=== PATIENT | female | born 1960 | race Caucasian/White ===

== ENCOUNTER → 2018-09-03 16:09 | Outpatient (CLI) | payer BC, SELFPAY ==
--- NOTE | 2018-09-03 16:14 | BI_ITS ---
MAMMOGRAPHY - BILATERAL SCREENING REASON FOR EXAM: Female, 58 years old. Routine annual screening examination. PERTINENT HISTORY: Non-contributory. Right breast larger than left breast. TECHNIQUE: Digital bilateral breast rosana (3D mammographic acquisition) in the CC and MLO projections. 2-D mediolateral oblique (MLO) and craniocaudad (CC) views of both breasts were obtained. CAD: Full Field Digital Mammography with Computer Added Detection was performed. COMPARISON: Comparison is made with prior study dated September 25, 2016 and April 12, 2015. FINDINGS: Breast Composition: There are scattered areas of fibroglandular density. There are no dominant masses or suspicious calcifications. No other significant abnormalities are identified. There has been no significant change since the prior study. BI/SCREENING MAMM (CAD), BILAT IMPRESSION: Stable bilateral screening mammogram. Yearly follow-up mammogram recommended. (A) ASSESSMENT CATEGORY: BIRADS Category 1: Negative. A letter regarding these results will be sent to the patient by the facility within 30 days. Approximately 10% of breast cancers are not detected by mammography. A normal mammogram should not delay biopsy of a clinically suspicious abnormality. [id number] Electronically Signed: Onesimo Lyn MD at 8:48 EST , Service support ,
== END ==
PROVIDERS: Family Provider Family Medicine; PCP Family Medicine; Referring Provider Family Medicine; Visit Provider Family Medicine
DX: Z12.31 Encounter for screening mammogram for malignant neoplasm of breast (principal)
CPT/HCPCS: 77063; 77067

== ENCOUNTER → 2018-10-24 10:51 | Outpatient (CLI) | payer BC, SELFPAY ==
[2018-10-24 12:10] LABS: Absolute Neutrophil Count 3.5 X10^3/uL (2.0-7.7); Basophil% 0.7 % (0-1); Eosinophils% 6.7 % (0-5); Hematocrit 36.4 % (37-47); Hemoglobin 12.4 g/dl (12.0-15.0); Mean Corp Hgb Conc 34.1 g/gl (32-36); Mean Corpuscular Volume 82.2 fL (81-99); Mean Platelet Vol. 10.1 fl (6.2-12.0); Monocyte% 9.5 % (0-10); Neutrophil # 3.46 X10^3/uL (2.7-7.7); Neutrophil % 60.9 % (47-70); Platelet Count 244 K/mm3 (150-450); RBC Distribution Width CV 13.6 % (11.6-14.6); RBC Distribution Width SD 41.3 fl (35.1-43.9); Red Blood Count 4.43 M/mm3 (4.2-5.4); White Blood Count 5.7 K/mm3 (4.4-11.0)
[2018-10-24 12:11] LABS: Absolute Lymphocyte Count 1.25 X10^3/ul (0.83-4.51); Basophil# 0.04 X10^3/uL; Eosinophil# 0.38 X10^3/uL; Lymphocyte # 1.25 X10^3/ul (4.0); Monocyte# 0.54 X10^3/uL
[2018-10-24 12:12] LABS: POSITIVE COUNT NO; POSITIVE DIFFERENTIAL NO; POSITIVE MORPHOLOGY NO
[2018-10-24 12:44] LABS: ALB/GLOB Ratio 1.1 RATIO (0.9-2.4); AST(SGOT) 12 U/L (15-37); Alanine Aminotransfer ALT/SGPT 21 U/L (13-56); Albumin, Serum 3.7 g/dL (3.2-5.0); Alkaline Phosphatase 85 U/L (45-117); Anion Gap 5 (5-15); BUN 18 mg/dL (7-18); BUN/Creat Ratio 23.2 RATIO (10-20); Calcium,Total 9.1 mg/dL (8.5-10.1); Chloride 98 mmol/L (98-107); Creatinine, Serum 0.78 mg/dL (0.55-1.02); EST Glomerular Filtration Rate 81 mL/min (>60); Est Glom Filt Rate - Afr Amer 98 mL/min (>60); Globulin 3.5 g/dL (2.2-4.2); Glucose 161 mg/dL (74-106); Potassium 3.2 mmol/L (3.5-5.1); Protein, Total 7.2 g/dL (6.4-8.2); Sodium Level 136 mmol/L (136-145)
== END ==
PROVIDERS: Family Provider Family Medicine; PCP Family Medicine; Visit Provider Family Medicine
DX: J20.9 Acute bronchitis, unspecified (principal); E55.9 Vitamin D deficiency, unspecified; R68.89 Other general symptoms and signs
CPT/HCPCS: 36415; 80053; 82306; 85025; 87633

== ENCOUNTER → 2019-01-23 08:21 | Outpatient (CLI) | payer BC, SELFPAY ==
[2019-01-23 12:31] LABS: Absolute Lymphocyte Count 1.47 X10^3/ul (0.83-4.51); Absolute Neutrophil Count 3.7 X10^3/uL (2.0-7.7); Basophil# 0.02 X10^3/uL; Basophil% 0.4 % (0-1); Eosinophil# 0.15 X10^3/uL; Eosinophils% 2.6 % (0-5); Hematocrit 37.1 % (37-47); Hemoglobin 12.4 g/dl (12.0-15.0); Lymphocyte # 1.47 X10^3/ul (4.0); Lymphocyte % 25.9 % (19-41); Mean Corp Hgb Conc 33.4 g/gl (32-36); Mean Corpuscular Hgb 27.3 pg (27.0-32.0); Mean Corpuscular Volume 81.5 fL (81-99); Mean Platelet Vol. 11.4 fl (6.2-12.0); Monocyte# 0.36 X10^3/uL; Monocyte% 6.3 % (0-10); Neutrophil # 3.66 X10^3/uL (2.7-7.7); Neutrophil % 64.6 % (47-70); Platelet Count 266 K/mm3 (150-450); RBC Distribution Width CV 13.3 % (11.6-14.6); RBC Distribution Width SD 38.4 fl (35.1-43.9); Red Blood Count 4.55 M/mm3 (4.2-5.4); White Blood Count 5.7 K/mm3 (4.4-11.0)
[2019-01-23 12:51] LABS: POSITIVE COUNT NO; POSITIVE DIFFERENTIAL NO; POSITIVE MORPHOLOGY NO
[2019-01-23 13:17] LABS: AST(SGOT) 21 U/L (15-37); Alanine Aminotransfer ALT/SGPT 27 U/L (13-56); Albumin, Serum 3.7 g/dL (3.2-5.0); Alkaline Phosphatase 84 U/L (45-117); Anion Gap 9 (5-15); BUN 15 mg/dL (7-18); BUN/Creat Ratio 17.7 RATIO (10-20); Calcium,Total 9.3 mg/dL (8.5-10.1); Chloride 101 mmol/L (98-107); Creatinine, Serum 0.85 mg/dL (0.55-1.02); EST Glomerular Filtration Rate 73 mL/min (>60); Est Glom Filt Rate - Afr Amer 88 mL/min (>60); Globulin 3.6 g/dL (2.2-4.2); Glucose 160 mg/dL (74-106); Potassium 3.4 mmol/L (3.5-5.1); Protein, Total 7.3 g/dL (6.4-8.2); Sodium Level 137 mmol/L (136-145)
[2019-01-23 13:41] LABS: Hepatitis C Antibody Non-Reactive (Nonreactive); Vitamin D,25 Hydroxy 69.8 ng/mL (29.95-100.01)
== END ==
PROVIDERS: Family Provider Family Medicine; PCP Family Medicine; Visit Provider Family Medicine
DX: E78.5 Hyperlipidemia, unspecified (principal); E55.9 Vitamin D deficiency, unspecified; I10 Essential (primary) hypertension; E11.9 Type 2 diabetes mellitus without complications; Z11.59 Encounter for screening for other viral diseases
CPT/HCPCS: 36415; 80053; 82306; 85025; 86803

== ENCOUNTER → 2019-04-06 09:26 | Outpatient (CLI) | payer BC, SELFPAY ==
[2019-04-06 09:30] LABS: Mucous, Urine 0 SEEN /hpf (<or=2+)
[2019-04-06 12:18] LABS: Color, Urine Amber (Yellow); Glucose, Dipstick Normal (Normal); Ketone-Dipstick 5 mg/dl (Negative); Leukocyte Esterase-Dipstick 100 /ul (Negative); Nitrite-Dipstick Positive (Negative); Occult Blood-Urine 250 /ul (Negative); Protein-Dipstick 100 mg/dl (Negative); Specific Gravity, Urine 1.015 (1.002-1.030); Urine Clarity Cloudy (Clear); Urine Urobilinogen 1 mg/dl (Normal)
[2019-04-06 12:26] LABS: Urine Bilirubin Dipstick 1 mg/dL (Negative)
[2019-04-06 12:27] LABS: Bacteria 2+ /hpf (None Seen); Red Blood Cells-Urine 50-100 SEEN /hpf (0-5); Squamous Epithelial Cells - UA 0-5 SEEN /hpf (5-10); White Blood Cells 0-5 SEEN /hpf (0-5)
== END ==
PROVIDERS: Family Provider Family Medicine; PCP Family Medicine; Visit Provider Family Medicine
DX: R31.9 Hematuria, unspecified (principal)
CPT/HCPCS: 81001; 87086; 87088

== ENCOUNTER 2019-06-08 11:09 | Observation (INO) | payer BC, SELFPAY ==
[2019-05-19 14:42] VITALS: BP 139/74; PULSE 83; RESP 16; TEMP 36.3; O2SAT 94; BMI 35.0
--- NOTE | 2019-05-19 14:51 | SDCEKG_ITS ---
Test Reason : Blood Pressure : / mmHG Vent. Rate : 075 BPM Atrial Rate : 075 BPM P-R Int : 152 ms QRS Dur : 084 ms QT Int : 390 ms P-R-T Axes : 033 -07 -02 degrees QTc Int : 435 ms Normal sinus rhythm Minimal voltage criteria for LVH, may be normal variant Anterior infarct , age undetermined Abnormal ECG Confirmed by RACHEL RENO, DOMINIC ([id number]), editor house organ PAZ GREGORIO ([id number]) on 05/26/2019 2:48:52 PM Referred By: Amauri Snider Confirmed By:DOMINIC RAMOS MD
[2019-05-19 15:20] LABS: Hematocrit 38.7 % (37-47); Hemoglobin 12.8 g/dL (12.0-15.0); Mean Corp Hgb Conc 33.1 g/dL (32-36); Mean Corpuscular Hgb 27.8 pg (27.0-32.0); Mean Corpuscular Volume 84.1 fL (81-99); Mean Platelet Vol. 10.6 fl (6.2-12.0); Platelet Count 302 K/mm3 (150-450); RBC Distribution Width CV 13.1 % (11.6-14.6); RBC Distribution Width SD 40.1 fl (35.1-43.9); White Blood Count 10.3 K/mm3 (4.4-11.0)
[2019-05-19 15:22] LABS: Partial Thromboplast Time 22.6 Seconds (24.1-36.2); Prothrombin Time (Protime)PT. 12.8 SECONDS (11.7-14.9)
[2019-05-19 15:52] LABS: Hemoglobin A1c 6.8 % (4.2-6.3)
[2019-05-19 16:00] LABS: AST(SGOT) 8 U/L (15-37); Alanine Aminotransfer ALT/SGPT 20 U/L (13-56); Albumin, Serum 3.7 g/dL (3.2-5.0); Alkaline Phosphatase 72 U/L (45-117); Anion Gap 12 (5-15); BUN 23 mg/dL (7-18); BUN/Creat Ratio 20.4 RATIO (10-20); Bilirubin, Direct 0.12 mg/dL (0.00-0.30); Calcium,Total 8.8 mg/dL (8.5-10.1); Chloride 95 mmol/L (98-107); Creatinine, Serum 1.13 mg/dL (0.55-1.02); EST Glomerular Filtration Rate 52 mL/min (>60); Est Glom Filt Rate - Afr Amer 63 mL/min (>60); Estimated Creatinine Clearance 50.18 ml/min; Globulin 3.8 g/dL (2.2-4.2); Glucose 388 mg/dL (74-106); Potassium 3.4 mmol/L (3.5-5.1); Protein, Total 7.5 g/dL (6.4-8.2); Sodium Level 134 mmol/L (136-145)
[2019-06-08] VITALS (11 sets, daily range): BP systolic 114–158; BP diastolic 67–80; PULSE 68–108; RESP 16–18; TEMP 36.2–36.8; O2SAT 93–100; BMI 35.0; BMI 34.9
[2019-06-08] MEDS: Lactated Ringers 1,000 ML 75 ML IV (09:37)
[2019-06-08] MEDS: Scopolamine 1mg/72hr Patch 1 PATCH TRANSDERM. (09:38)
[2019-06-08] MEDS: Lactated Ringers 1,000 ML 999 ML IV (09:38)
[2019-06-08] MEDS: Magnesium Sulfate 4gm/100mL 4 GM/100 ML IV.SOLN. IV (09:38)
[2019-06-08] MEDS: Gabapentin 600 MG Tablet PO (09:39)
[2019-06-08] MEDS: Acetaminophen 500 MG Tablet 1000 MG PO ×2 (09:39→21:26)
[2019-06-08 09:51] LABS: Bedside Glucose 365 mg/dL (70-110)
[2019-06-08] MEDS: Insulin Lispro 100 UNIT/ML INSULN.PEN SC (10:16)
--- NOTE | 2019-06-08 10:45 | KNEE_PTH ---
PATIENT: BRIAN BUCHANAN LOC: MS3 U#:[id number] AGE/SX: 59/F ROOM: MS309 RE06/08/[address]: Dr. Amauri Snider DO : 1960 BED: 1 DIS: 06/09/2019 SPEC #: [id number] RECD: 06/08/19 14:39 STATUS: GABRIELLA REAiden #: [id number] SARAH: 06/08/19 10:[address]: Amauri Snider DEPT: SURGICAL PATHOLOGY RECD BY: Adrianne Remy ENTERED: 06/08/19 14:58 SP TYPE: TOTAL KNEE OTHR DR: Dr. Darius Hansen MD Tissues: Knee, NOS Procedures: Decalcification bone/plaque Surgery Specimen Level IV HEADER OPERATION: ERAS, total knee replacement PRE-OP DIAGNOSIS: Unilateral primary osteoarthritis left knee TISSUE SUBMITTED: Left knee bone and tissue MICROSCOPIC DIAGNOSIS Bone and soft tissue, left knee, total knee replacement: Pieces of bone with degenerative osteoarthritic changes. Fibroadipose tissue, fibroconnective tissue and reactive synovial tissue. REGINA:chon 06/12/19 MICROSCOPIC DESCRIPTION Slides are reviewed. GROSS DESCRIPTION Received is one container designated bone and soft tissue left knee. The specimen consists of multiple fragments of hewitt-yellow bone measuring in aggregate 9 x 8 x 2 cm. Also in the specimen container are multiple fragments of yellow-white soft tissue measuring in aggregate 8 x 8 x 2 cm. A number of bony fragments contain articular surfaces consistent with tibial plateau and femoral condyle and displaying prominent osteophyte formation and bone erosion. Mold Insert Changer sections are submitted in three cassettes as follows: 1 - soft tissue, 2 & 3 - bone after decalcification. / REGINA:chon 06/08/19 TC: CPT: 05494, [id number]
[2019-06-08] MEDS: Lactated Ringers 1,000 ML 125 ML IV (11:10)
[2019-06-08] MEDS: Scopolamine 1mg/72hr Patch 1 PATCH TD (11:15)
[2019-06-08] MEDS: Cefazolin 2 GM in 0.9% Normal Saline 100 ML IV (11:19)
--- NOTE | 2019-06-08 13:50 | OP.PCM_ITS ---
Report of Operation Date of Procedure: 06/08/19 Pre-Operative Diagnosis: OA left knee Post-Operative Diagnosis: same Surgery/Procedure Performed:: Left TKR Description of Surgical Findings:: Primary Surgeon/Physician: Amauri Snider electronics maintenance technician: Zak Ye PA-C electronics maintenance technician: Pre-Operative Diagnosis: OA left knee Post-Operative Diagnosis: same Surgery/Procedure Performed: Left TKR Estimated Blood Loss: 25 cc Specimen's Removed: bone Type of Anesthesia: spinal ASA Class: 2 Implants: [Mikel Triathlon size 5 CR femur press fit, size 5 press fit tibia, 9 mm CS polyethylene, 32 mm press fit patella] Indications: Patient has severe end-stage osteoarthritis diagnosed via x-rays in the knee. They have failed all forms of conservative measures including activity modification, injections, anti-inflammatories, use of assistive device. The patient has pain that affects on a daily basis and prevents him from doing things that they enjoyed. They have elected to undergo the above procedure. The risks of the procedure were discussed at length and their questions were answered. Procedure Description: The patient was greeted in the preoperative area. The [left ] knee was then marked with a surgical marker. Patient was then taken to or [address]. They were administered a dose of antibiotics as well as tranexamic acid. Once adequate anesthesia was obtained and airway was secured to placed in supine position on the operating room table. A well-padded tourniquet was placed on the affected extremity. Leg was then prepped and draped in the usual sterile fashion from the knee down. Ioban was used on the skin. Surgical timeout was then performed and confirmed with all present. Six-inch Esmarch was used to examine the limb and tourniquet was then inflated to 250 mmHg. A longitudinal incision was then planned and carried out in the anterior aspect of the knee. The dissection was then carried the length of the incision the extensor mechanism was identified. Standard medial parapatellar arthrotomy was then performed revealing severe eburnation of bone and periarticular osteophytes. There is complete loss of cartilage especially in the medial compartment with varus alignment. Anterior fat pad was removed for visualization purposes and the anterior medial aspect of the tibia was skeletonized for exposure to the knee. The knee was then flexed the patella was inverted. Opening reamer was then used in the femur approximately 1 cm anterior to the attachment of the PCL. The intramedullary valgus wand was then placed in the femur set at 5? of valgus. The distal femoral cutting jig was then applied to the femur with anticipated resection of approximately 8 mm. This was then made with a oscillating saw. The sizing guide was then placed referencing off the posterior condyles and also reference off the epicondylar axis. This was measured and the appropriate size 4-in-1 cutting jig was then applied to the distal femur. Anterior posterior cuts were made followed by the anterior and posterior chamfer cuts. These bony pieces and fragments were removed and placed on the back table. Posterior retractor was then utilized and the tibia was subluxed anteriorly. Intramedullary tibial alignment jig was then applied to the tibia referencing off the medial one third of the tibial tubercle the anterior tibial spine the middle aspect of the tibiotalar joint. Also reference off patient's [place] slope. The tibial cutting jig was then pinned with anticipated resection of 2 mm off of the deficient medial tibial condyle. This cut was made with the oscillating saw. Once this was complete a laminar floral merchandiser was utilized in both medial lateral meniscus were removed and a posterior capsular osteophytes were also removed. Posterior capsule release was performed in the posterior capsule as well as the geniculate arteries are treated with the aqua Lucía. The tibia was incised and the appropriate sized tibial tray was then pinned. The femoral trial was then placed and the knee was trialed. Full flexion-extension were easily achieved. The knee seemed to balance quite nicely. Any remaining osteophytes were removed at this time. Once this was complete the patella was everted and the [place] patella reaming device was then utilized the patella was then placed in the appropriate jig and reamer was then used to remove approximately 9 mm of the undersurface of the patella. A soft tissue remaining was in the way was removed and patella trial was then placed listed maintain excellent tracking using the no thumbs technique. The tibial tray at this point was punched to accommodate the fins of the final implant. The trial components were removed and the knee was copiously irrigated. Did use a cocktail of injection for postoperative pain control. The final components were placed. The tourniquet was deflated and hemostasis was perfect with Bovie cautery as well as the aqua Manus. The knee is once again trialed with different size polyethylenes to ensure the full range of motion was achieved as well as excellent balancing ligamentously was achieved. At this point the knee was copiously irrigated. Final implant was then inserted locking mechanism was engaged and confirmed to be locked. The arthrotomy was then closed with #1 Vicryl aggravate type fashion interrupted. Subcutaneous tissue was closed with 0 Vicryl and surgical jose miguel were placed in the skin. A occlusive silver impregnated dressing was then applied followed by well-padded sterile dressing secured with an Aiden wrap. The patient was taken to the PACU in stable condition. No complications known at this time. Postoperatively we will maintain standard total knee postopera tive protocol. The use of the physician multimedia assistant was integral during this procedure. They assisted with positioning placement of the tourniquet retracting closure and placement of the dressing. The procedure would have been much more difficult without their expertise and assistance electronics maintenance technician: Zak Ye Type of Anesthesia:: Spinal Anesthesiologist: Ector Daily Specimen's removed: bone Estimated Blood Loss (mL): 25 cc - Admit VTE Documentation VTE Present on Admission: No VTE Mechan Device Prophylaxis: SCD's, Thigh High JESSE Hose VTE Pharm Prophylaxis ordered?: Yes
[2019-06-08 15:01] LABS: Bedside Glucose 278 mg/dL (70-110)
[2019-06-08] MEDS: Aspirin 325 MG Tablet PO (17:39)
[2019-06-08] MEDS: metFORMIN HCl 500 MG Tablet PO (17:40)
[2019-06-08] MEDS: traMADol 50 MG Tablet PO (17:43)
[2019-06-08 17:46] LABS: Bedside Glucose 246 mg/dL (70-110)
[2019-06-08] MEDS: Cefazolin 1 GM/50 ML BAG IV (18:15)
[2019-06-08] MEDS: Atorvastatin Calcium 10 MG Tablet 5 MG PO (21:23)
[2019-06-08] MEDS: Senna/Docusate Sodium 1 Tablet 2 TABLET PO (21:23)
[2019-06-09] MEDS: traMADol 50 MG Tablet PO ×2 (01:46→10:07)
[2019-06-09 02:05] VITALS: BP 114/52; PULSE 76; RESP 18; TEMP 36.7; O2SAT 94
[2019-06-09] MEDS: Cefazolin 1 GM/50 ML BAG IV (02:13)
[2019-06-09] MEDS: Acetaminophen 500 MG Tablet 1000 MG PO ×2 (05:53→13:37)
[2019-06-09 06:25] LABS: Hematocrit 29.3 % (37-47); Hemoglobin 9.8 g/dL (12.0-15.0); Mean Corp Hgb Conc 33.4 g/dL (32-36); Mean Corpuscular Hgb 28.8 pg (27.0-32.0); Mean Corpuscular Volume 86.2 fL (81-99); Mean Platelet Vol. 10.4 fl (6.2-12.0); Platelet Count 204 K/mm3 (150-450); RBC Distribution Width CV 13.2 % (11.6-14.6); RBC Distribution Width SD 40.7 fl (35.1-43.9); White Blood Count 9.3 K/mm3 (4.4-11.0)
[2019-06-09 06:46] LABS: Anion Gap 7 (5-15); BUN 18 mg/dL (7-18); BUN/Creat Ratio 24.5 RATIO (10-20); Calcium,Total 7.8 mg/dL (8.5-10.1); Chloride 100 mmol/L (98-107); Creatinine, Serum 0.74 mg/dL (0.55-1.02); EST Glomerular Filtration Rate 86 mL/min (>60); Est Glom Filt Rate - Afr Amer 104 mL/min (>60); Estimated Creatinine Clearance 75.68 ml/min; Glucose 230 mg/dL (74-106); Potassium 3.9 mmol/L (3.5-5.1); Sodium Level 135 mmol/L (136-145)
--- NOTE | 2019-06-09 07:47 | PCM.PN.ORT ---
Subjective: Patient sitting at bedside eating breakfast. Pain well managed. Denies chest pain, shortness breath, calf pain, nausea vomiting. Patient ready for discharge home. Objective: Dressing is clean dry intact. Negative signs and symptoms of DVT. Vital signs labs within normal limits. Patient in no respiratory distress. Neurovascular is otherwise intact. - Physical Exam Vitals/I&O's: Vital Signs Temp Pulse Resp BP Pulse Ox 98.1 F 76 18 114/52 L 94 06/09/19 02:05 06/09/19 02:05 06/09/19 02:05 06/09/19 02:05 06/09/19 02:05 Oxygen Flow Rate (L/min) 1 Oxygen Delivery Method Room Air Weight: 98.5 kg Body Mass Index (BMI) 34.9 Finger Stick Blood Glucose 278 Intake and Output for Last 24 Hours 06/07/19 06/08/19 06/09/19 23:59 23:59 23:59 Intake Total 3965.42 / 3965.42 764.58 / 764.58 Output Total 180 / 180 Balance 3965.42 / 3965.42 584.58 / 584.58 General: Alert, Oriented x3, Cooperative HEENT: PERRLA Oral: Moist Mucosa Cardiovascular: Regular rate Neurological: Cranial nerves II-XII grossly intact Psych/Mental Status: Normal Affect, Alert and oriented to time, place, person, mood and affect Laboratory Results 06/08/19 09:47: POC Glucose 365 H 06/08/19 14:54: POC Glucose 278 H 06/08/19 17:36: POC Glucose 246 H 06/09/19 05:40: WBC 9.3, RBC 3.40 L, Hgb 9.8 L, Hct 29.3 L, MCV 86.2, MCH 28.8, MCHC 33.4, RDW Std Deviation 40.7, RDW Coeff of Chance 13.2, Plt Count 204, MPV 10.4 06/09/19 05:40: Sodium 135 L, Potassium 3.9, Chloride 100, Carbon Dioxide 28.0, Anion Gap 7, BUN 18, Creatinine 0.74, Estim Creat Clear Calc 75.68, Est GFR (MDRD) Af Amer 104, Est GFR (MDRD) Non-Af 86, BUN/Creatinine Ratio 24.5 H, Glucose 230 H, Calcium 7.8 L Current Medications Acetaminophen (Tylenol) 1,000 mg PO Q8 [facility] Last Admin: 06/09/19 05:53 Dose: 1,000 mg Documented by: Ascorbic Acid (Vitamin C) 500 mg PO DAILY [facility] Last Admin: 06/08/19 17:39 Dose: 325 mg Documented by: Atorvastatin Calcium (Lipitor) 5 mg PO QHS [facility] Last Admin: 06/08/19 21:23 Dose: 5 mg Documented by: Cholecalciferol (Vitamin D) 2,000 unit PO MOWEFR [facility] Last Admin: 06/08/19 16:24 Dose: Not Given Documented by: Citalopram Hydrobromide (Celexa) 20 mg PO DAILY [facility] Estradiol [facility]iol) [facility] Hydrochlorothiazide (Hctz) 25 mg PO DAILY [facility] Insulin Human Lispro (Humalog Kwikpen (Bkc)) 1 - 6 unit SC Q4H PRN PRN; Protocol PRN Reason: BG>/= 180, SEE PROTOCOL Last Admin: 06/08/19 10:16 Dose: 5 units Documented by: Losartan Potassium (Cozaar) 25 mg PO DAILY [facility] Metformin [facility] (Glucophage) [facility] Last Admin: 06/08/19 17:40 Dose: 500 mg Documented by: Ondansetron HCl (Zofran) 4 mg IV Q8H PRN PRN PRN Reason: NAUSEA Promethazine HCl (Phenergan) 12.5 mg IM Q6H PRN PRN; Protocol PRN Reason: NAUSEA/VOMITING Senna/Docusate Sodium (Senokot-S, Della-Colace) 2 tablet PO BID [facility] Last Admin: 06/08/19 21:23 Dose: 2 tablet Documented by: Sodium Chloride () 10 - 40 ml IV UD PRN PRN Reason: SALINE FLUSH Tramadol HCl (Ultram) 50 - 100 mg PO Q6H PRN PRN PRN Reason: Pain Score 4-10/10 Last Admin: 06/09/19 01:46 Dose: 100 mg Documented by: Medical Necessity - Tobacco Use Smoking Status: Never smoker Tobacco Use: Non-smoker Assessment/Plan Postop left total knee arthroplasty Plan 1. Continue all pain medications as prescribed 2. Continue physical therapy, weight-bear as tolerated with walker 3. Aspirin 325 mg 1 p.o. every 12 hours x30 days for postop DVT prophylaxis 4. Encourage incentive spirometry 5. Follow-up as scheduled, see pink sheet. Patient will continue with outpatient therapy. 6. Discharge home today after p.m. therapy
--- NOTE | 2019-06-09 07:52 | DCINST_ITS ---
Discharge Diet: No Restrictions Discharge Activity: May Not Drive, May Shower, Use Walker May shower in (days): 2 Ice area for (Minutes): 20 - each hour while awake. Weight Bearing Status: Weight bearing as tolerated Elevate: Operative Extremity Additional Activity Instructions:: Wear elastic stockings for 2 weeks after your surgery. Call your doctor if your incision/area has: Continuous Slow Oozing, Sudden Increased Bleeding, Increased Pain/ Swelling, Increased Redness, Foul Smelling Discharge Call your doctor if you observe: Fever of 101 or Higher, Coldness, Increased Pain - in extremity, Numbness or Tingling, Change in Color, Calf discomfort, Uncontrolled pain Change Dressing in (Days):: 0 - and daily as needed. Remove Dressing in (days):: 8 Cleanse incision/area with: Soap & Water Allergies/Adverse Reactions: Allergies oxycodone [From Percocet] Adverse Reaction (Verified 06/08/19 09:10) Nausea Medications to take at Discharge Ascorbic Acid [Vitamin C] 500 mg PO DAILY 05/19/19 Bacillus Coagulans/Inulin [Probiotic Formula Capsule] 1 ea PO DAILY PRN 05/19/19 Biotin 10,000 mcg PO DAILY PRN 05/19/19 Cholecalciferol (VIT D3) [Vitamin D3] 2,000 unit PO MOWEFR 05/19/19 Citalopram [Celexa] 20 mg PO DAILY 05/19/19 Estradiol 0.5 mg PO DAILY 05/19/19 Hydrochlorothiazide [Hctz] 25 mg PO DAILY 05/19/19 Losartan Potassium [Cozaar] 25 mg PO DAILY 05/19/19 Metformin HCl [Glucophage] 500 mg PO BID 05/19/19 Potassium Gluconate [Potassium] 99 mg PO BID 05/19/19 Prednisone 20 mg PO BID 05/19/19 Simvastatin [Zocor] 5 mg PO QHS 05/19/19 Acetaminophen [Tylenol] 1,000 mg PO Q8 #90 tab 06/09/19 Aspirin 325 mg PO BIDCM #60 tab 06/09/19 traMADol [Ultram] 50 - 100 mg PO Q6H PRN PRN 7 Days #56 tab 06/09/19 The following prescriptions were given: Aspirin 325 mg PO BIDCM #60 tab Prescription Printed Acetaminophen [Tylenol] 1,000 mg PO Q8 #90 tab Prescription Printed traMADol [Ultram] 50 - 100 mg PO Q6H PRN PRN 7 Days #56 tab PRN Reason: Pain Score 4-10/10 Prescription Printed Primary Care Physician: Darius Hansen MD [Primary Care Provider] - Test Results: Test results from this visit will be discussed in further detail at your follow- up appointment, if applicable. Please Follow Up With: Zak Ye PA-C When: see pink sheet
[2019-06-09] MEDS: metFORMIN HCl 500 MG Tablet PO (08:12)
[2019-06-09] MEDS: Ascorbic Acid 500 MG Tablet PO (08:13)
[2019-06-09] MEDS: Senna/Docusate Sodium 1 Tablet 2 TABLET PO (08:13)
[2019-06-09] MEDS: Estradiol 0.5 MG Tablet PO (08:13)
[2019-06-09] MEDS: Aspirin 325 MG Tablet PO (08:13)
[2019-06-09] MEDS: Citalopram 20 MG Tablet PO (08:13)
[2019-06-09 08:15] VITALS: BP 103/50; PULSE 95; RESP 16; TEMP 37.2; O2SAT 95
[2019-06-09] MEDS: hydroCHLOROthiazide 25 MG Tablet PO (08:18)
[2019-06-09] MEDS: Losartan Potassium 25 MG Tablet PO (08:18)
--- NOTE | 2019-06-09 11:00 | CASEMGMT ---
RN RANDEE Face to Face with patient for initial transition planning/care coordination assessment. RN CM introduced self and role at [facility]. Patient lying in bed, alert and oriented. Patient willing to participate in assessment and is able to answer all questions appropriately. Care providers, pharmacy, and demographics verified. Patient wishes to discharge home and is setup with in [place] for outpatient therapy starting Saturday. Patient states she has no further needs or concerns at this time. CM to follow for discharge planning needs that may arise. PCP: [facility] Specialists: kirsten Snider Preferred Pharmacy: [facility] Insurance: Onset Prescription Benefit: yes Living Will/HPOA: yes, Sagar Grissom LNOK: Living Arrangements: Patient lives with in 2 story home with bed and bath on 1st floor. Patient independent at home prior to surgery. 3-4 steps with railing to enter the home. Transportation: DME/HHC: Patient has walker and raised toilet at home. Patient is setup with in [place] for outpatient therapy for Saturday. Disposition Plan: Patient to discharge home with family support, outpatient therapy, and follow-up plans in place. Alma ABERNATHY, RN, CM
[2019-06-09 13:39] VITALS: BP 129/74; PULSE 85; RESP 18; TEMP 36.9; O2SAT 94
== END 2019-06-09 14:20 | disposition home or self-care (01) ==
LOC: SDC 11:25
PROVIDERS: Anesthesiology; Admitting Provider Orthopaedic Surgery; Family Provider Family Medicine; PCP Family Medicine; Referring Provider Orthopaedic Surgery; Visit Provider Orthopaedic Surgery
PROC: (CPT 27447; principal; 2019-06-08 11:40)
DX: M17.12 Unilateral primary osteoarthritis, left knee (principal); I10 Essential (primary) hypertension; E11.9 Type 2 diabetes mellitus without complications; E78.00 Pure hypercholesterolemia, unspecified; Z79.899 Other long term (current) drug therapy; Z79.84 Long term (current) use of oral hypoglycemic drugs; F32.9 Major depressive disorder, single episode, unspecified
CPT/HCPCS: 27447; 36415; 80048; 80076; 82962; 83036; 85027; 85610; 85730; 87081; 88305; 88311; 93005; 96361; 96365; 96366; 97110; 97162; 97166; 97530; 99218; 99251; C1776; J7120; G0378; G0379; G0463; J2405

== ENCOUNTER → 2019-09-03 | Outpatient (CLI) | payer BC, SELFPAY ==
[2019-06-08 15:28] VITALS: BMI 34.9
[2019-09-03 17:37] LABS: Absolute Lymphocyte Count 1.92 X10^3/uL (0.83-4.51); Absolute Neutrophil Count 4.2 X10^3/uL (2.0-7.7); Basophil# 0.04 X10^3/uL; Basophil% 0.6 % (0-1); Eosinophil# 0.14 X10^3/uL; Eosinophils% 2.1 % (0-5); Hematocrit 36.2 % (37-47); Hemoglobin 11.6 g/dL (12.0-15.0); Lymphocyte # 1.92 X10^3/ul (4.0); Lymphocyte % 28.2 % (19-41); Mean Corpuscular Hgb 26.5 pg (27.0-32.0); Mean Corpuscular Volume 82.8 fL (81-99); Mean Platelet Vol. 11.1 fl (6.2-12.0); Monocyte# 0.46 X10^3/uL; Monocyte% 6.8 % (0-10); NRBC Flagged by Analyzer 0 % (0-5); Neutrophil # 4.22 X10^3/uL (2.7-7.7); Platelet Count 342 K/mm3 (150-450); RBC Distribution Width CV 13.5 % (11.6-14.6); RBC Distribution Width SD 40.3 fl (35.1-43.9); Red Blood Count 4.37 M/mm3 (4.2-5.4); White Blood Count 6.8 K/mm3 (4.4-11.0)
[2019-09-03 17:45] LABS: CRP 9.31 mg/L (0.0-3.0)
[2019-09-03 17:57] LABS: Erythrocyte Sedimentation Rate 11 mm/hr (0-30)
== END | disposition home or self-care (01) ==
LOC: MTLAB 15:53
PROVIDERS: PCP Family Medicine; Referring Provider Physician Assistant; Visit Provider Physician Assistant
DX: Z96.652 Presence of left artificial knee joint (principal)
CPT/HCPCS: 36415; 85025; 85652; 86140

== ENCOUNTER → 2019-10-15 | Outpatient (CLI) | payer BC, SELFPAY ==
[2019-06-08 15:28] VITALS: BMI 34.9
[2019-10-15 12:16] LABS: Absolute Lymphocyte Count 1.62 X10^3/uL (0.83-4.51); Absolute Neutrophil Count 4.2 X10^3/uL (2.0-7.7); Basophil# 0.03 X10^3/uL; Basophil% 0.5 % (0-1); Eosinophils% 1.6 % (0-5); Hematocrit 38.6 % (37-47); Hemoglobin 12.1 g/dL (12.0-15.0); Lymphocyte # 1.62 X10^3/ul (4.0); Lymphocyte % 25.7 % (19-41); Mean Corp Hgb Conc 31.3 g/dL (32-36); Mean Corpuscular Hgb 26.2 pg (27.0-32.0); Mean Corpuscular Volume 83.5 fL (81-99); Mean Platelet Vol. 11.1 fl (6.2-12.0); Monocyte# 0.36 X10^3/uL; Monocyte% 5.7 % (0-10); NRBC Flagged by Analyzer 0 % (0-5); Neutrophil # 4.18 X10^3/uL (2.7-7.7); Neutrophil % 66.2 % (47-70); Platelet Count 286 K/mm3 (150-450); RBC Distribution Width CV 13.4 % (11.6-14.6); RBC Distribution Width SD 40.3 fl (35.1-43.9); Red Blood Count 4.62 M/mm3 (4.2-5.4); White Blood Count 6.3 K/mm3 (4.4-11.0)
[2019-10-15 12:28] LABS: Erythrocyte Sedimentation Rate 10 mm/hr (0-30)
[2019-10-15 12:47] LABS: D-Dimer Quantitative (DVT/PE) 0.97 FEU/ug/m (0.27-0.49)
[2019-10-15 12:50] LABS: AST(SGOT) 24 U/L (15-37); Alanine Aminotransfer ALT/SGPT 38 U/L (13-56); Albumin, Serum 3.8 g/dL (3.2-5.0); Alkaline Phosphatase 87 U/L (45-117); Anion Gap 8 (5-15); BUN 23 mg/dL (7-18); BUN/Creat Ratio 32.5 RATIO (10-20); CRP 6.78 mg/L (0.0-3.0); Calcium,Total 9.4 mg/dL (8.5-10.1); Chloride 99 mmol/L (98-107); Creatinine, Serum 0.71 mg/dL (0.55-1.02); EST Glomerular Filtration Rate 89 mL/min (>60); Est Glom Filt Rate - Afr Amer 108 mL/min (>60); Globulin 3.7 g/dL (2.2-4.2); Glucose 128 mg/dL (74-106); Potassium 3.5 mmol/L (3.5-5.1); Protein, Total 7.5 g/dL (6.4-8.2); Sodium Level 137 mmol/L (136-145)
== END | disposition home or self-care (01) ==
PROVIDERS: PCP Family Medicine; Referring Provider Family Medicine; Visit Provider Family Medicine
DX: L03.90 Cellulitis, unspecified (principal); R60.0 Localized edema; Z86.718 Personal history of other venous thrombosis and embolism
CPT/HCPCS: 36415; 80053; 85025; 85379; 85652; 86140

== ENCOUNTER → 2020-02-03 | Outpatient (CLI) | payer BC, SELFPAY ==
[2019-06-08 15:28] VITALS: BMI 34.9
== END | disposition home or self-care (01) ==
LOC: BFHLAB 13:46
PROVIDERS: PCP Family Medicine; Visit Provider Family Medicine
DX: M54.5 Low back pain (principal); R82.81 Pyuria
CPT/HCPCS: 87086; 87088

== ENCOUNTER → 2020-02-23 07:06 | Outpatient (CLI) | payer BC, SELFPAY ==
[2019-06-08 15:28] VITALS: BMI 34.9
[2020-02-23 09:43] LABS: Absolute Lymphocyte Count 1.72 X10^3/uL (0.83-4.51); Absolute Neutrophil Count 4.2 X10^3/uL (2.0-7.7); Basophil# 0.04 X10^3/uL; Basophil% 0.6 % (0-1); Eosinophils% 1.5 % (0-5); Hematocrit 38.5 % (37-47); Hemoglobin 12.3 g/dL (12.0-15.0); Lymphocyte # 1.72 X10^3/ul (4.0); Lymphocyte % 26.6 % (19-41); Mean Corp Hgb Conc 31.9 g/dL (32-36); Mean Corpuscular Hgb 26.9 pg (27.0-32.0); Mean Corpuscular Volume 84.1 fL (81-99); Mean Platelet Vol. 11.2 fl (6.2-12.0); Monocyte# 0.38 X10^3/uL; Monocyte% 5.9 % (0-10); NRBC Flagged by Analyzer 0 % (0-5); Neutrophil # 4.21 X10^3/uL (2.7-7.7); Neutrophil % 65.1 % (47-70); Platelet Count 327 K/mm3 (150-450); RBC Distribution Width SD 39.9 fl (35.1-43.9); Red Blood Count 4.58 M/mm3 (4.2-5.4); White Blood Count 6.5 K/mm3 (4.4-11.0)
[2020-02-23 09:47] LABS: Color, Urine Yellow (Yellow); Glucose, Dipstick Normal (Normal); Ketone-Dipstick 5 mg/dl (Negative); Leukocyte Esterase-Dipstick 25 /ul (Negative); Nitrite-Dipstick Negative (Negative); Occult Blood-Urine 10 /ul (Negative); Protein-Dipstick 15 mg/dl (Negative); Specific Gravity, Urine 1.025 (1.002-1.030); Urine Bilirubin Dipstick Negative (Negative); Urine Clarity Sl. Cloudy (Clear); Urine Urobilinogen 1 mg/dl (Normal)
[2020-02-23 10:04] LABS: Hemoglobin A1c 6.8 % (3.8-5.6)
[2020-02-23 10:15] LABS: AST(SGOT) 18 U/L (15-37); Alanine Aminotransfer ALT/SGPT 30 U/L (13-56); Albumin, Serum 3.7 g/dL (3.2-5.0); Alkaline Phosphatase 89 U/L (45-117); Anion Gap 6 (5-15); BUN 21 mg/dL (7-18); BUN/Creat Ratio 24.7 RATIO (10-20); Chloride 103 mmol/L (98-107); Cholesterol 226 mg/dL (200); Creatinine, Serum 0.85 mg/dL (0.55-1.02); EST Glomerular Filtration Rate 72 mL/min (>60); Est Glom Filt Rate - Afr Amer 88 mL/min (>60); Globulin 3.8 g/dL (2.2-4.2); Glucose 165 mg/dL (74-106); High Density Lipoprotein 74 mg/dL; Potassium 3.4 mmol/L (3.5-5.1); Protein, Total 7.5 g/dL (6.4-8.2); Sodium Level 139 mmol/L (136-145); Triglycerides 123 mg/dL; Very Low Density Lipoprotein 25 mg/dL (5-40)
[2020-02-23 11:08] LABS: Vitamin D,25 Hydroxy 37.7 ng/mL
== END ==
LOC: MTLAB 07:08
PROVIDERS: PCP Family Medicine; Referring Provider Family Medicine; Visit Provider Family Medicine
DX: E11.9 Type 2 diabetes mellitus without complications (principal); I10 Essential (primary) hypertension; E55.9 Vitamin D deficiency, unspecified; R60.9 Edema, unspecified
CPT/HCPCS: 36415; 80053; 80061; 81002; 82306; 83036; 85025

== ENCOUNTER → 2020-03-04 | Outpatient (CLI) | payer BC, SELFPAY ==
[2019-06-08 15:28] VITALS: BMI 34.9
[2020-03-04 15:36] LABS: Erythrocyte Sedimentation Rate 11 mm/hr (0-30); Rheumatoid Factor < 10.0 IU/mL (<15)
[2020-03-07 16:08] LABS: Anti-Centromere B Ab <0.2 AI (0.0-0.9); Anti-Chromatin <0.2 AI (0.0-0.9); Anti-Jo <0.2 AI (0.0-0.9); Anti-Scleroderma-70 AB <0.2 AI (0.0-0.9); RNP Ab 0.4 AI (0.0-0.9); SJOGREN'S Anti-SS-A test < 0.2 AI (0.0-0.9); SJOGREN'S Anti-SS-B test < 0.2 AI (0.0-0.9); Smith Ab <0.2 AI (0.0-0.9)
[2020-03-07 21:26] LABS: Anti-dsDNA Ab 1 IU/mL (0-9)
[2020-03-08 10:46] LABS: CCP IgG Antibodies 9 units (0-19)
== END | disposition home or self-care (01) ==
LOC: BFHLAB 13:06
PROVIDERS: PCP Family Medicine; Visit Provider Family Medicine
DX: M06.4 Inflammatory polyarthropathy (principal)
CPT/HCPCS: 36415; 85652; 86140; 86200; 86225; 86235; 86431

== ENCOUNTER → 2020-04-26 | Outpatient (CLI) | payer BC, SELFPAY ==
[2019-06-08 15:28] VITALS: BMI 34.9
--- NOTE | 2020-04-26 10:50 | VDLE_ITS ---
Reason For Study: Left leg pain Procedure LEFT This is a venous duplex using B-mode, color GSV is normal. flow and spectral Doppler. CFV is compressible, spontaneous, phasic, Exam performed in department. competent, and demonstrates normal A preliminary report was called and/or faxed augmentation. to [facility]. FV is compressible, spontaneous, phasic, competent and demonstrates normal augmentation. POP V is compressible, spontaneous, phasic, competent and demonstrates normal augmentation. T/P Trunk is compressible. PTV is compressible. LT PerV is compressible. Interpretation Summary Deep veins of the left lower extremity are patent and compressible segmentally. There is no evidence of left lower extremity deep vein thrombosis. Valvular competence appears intact within the proximal deep venous system on the left . The left great saphenous vein appears patent and compressible segmentally. Ordering Physician: Darius Hansen Referring Physician: Darius Hansen Performed By: Alma Savage RVT and Student
== END | disposition home or self-care (01) ==
LOC: CVS 10:49
PROVIDERS: PCP Family Medicine; Referring Provider Family Medicine; Visit Provider Family Medicine
DX: M79.605 Pain in left leg (principal)
CPT/HCPCS: 93971

== ENCOUNTER → 2020-05-02 | Outpatient (CLI) | payer BC, SELFPAY ==
[2019-06-08 15:28] VITALS: BMI 34.9
[2020-05-02 09:49] LABS: Absolute Lymphocyte Count 1.39 X10^3/uL (0.83-4.51); Absolute Neutrophil Count 3.9 X10^3/uL (2.0-7.7); Basophil# 0.04 X10^3/uL; Basophil% 0.7 % (0-1); Eosinophil# 0.15 X10^3/uL; Eosinophils% 2.6 % (0-5); Hemoglobin 11.9 g/dL (12.0-15.0); Lymphocyte # 1.39 X10^3/ul (4.0); Lymphocyte % 24.2 % (19-41); Mean Corp Hgb Conc 32.2 g/dL (32-36); Mean Corpuscular Hgb 27.2 pg (27.0-32.0); Mean Corpuscular Volume 84.5 fL (81-99); Mean Platelet Vol. 10.3 fl (6.2-12.0); Monocyte# 0.31 X10^3/uL; Monocyte% 5.4 % (0-10); NRBC Flagged by Analyzer 0 % (0-5); Neutrophil # 3.85 X10^3/uL (2.7-7.7); Neutrophil % 66.9 % (47-70); Platelet Count 283 K/mm3 (150-450); RBC Distribution Width CV 13.9 % (11.6-14.6); RBC Distribution Width SD 42.1 fl (35.1-43.9); Red Blood Count 4.38 M/mm3 (4.2-5.4); White Blood Count 5.8 K/mm3 (4.4-11.0)
[2020-05-02 10:17] LABS: AST(SGOT) 21 U/L (15-37); Alanine Aminotransfer ALT/SGPT 37 U/L (13-56); Albumin, Serum 3.7 g/dL (3.2-5.0); Alkaline Phosphatase 82 U/L (45-117); Anion Gap 9 (5-15); BUN 15 mg/dL (7-18); BUN/Creat Ratio 20.2 RATIO (10-20); Calcium,Total 9.2 mg/dL (8.5-10.1); Chloride 101 mmol/L (98-107); Creatinine, Serum 0.74 mg/dL (0.55-1.02); EST Glomerular Filtration Rate 85 mL/min (>60); Est Glom Filt Rate - Afr Amer 102 mL/min (>60); Globulin 3.8 g/dL (2.2-4.2); Glucose 166 mg/dL (74-106); Potassium 3.7 mmol/L (3.5-5.1); Protein, Total 7.5 g/dL (6.4-8.2); Sodium Level 140 mmol/L (136-145)
== END | disposition home or self-care (01) ==
LOC: MTLAB 07:12
PROVIDERS: PCP Family Medicine; Referring Provider Internal Medicine Rheumatology; Visit Provider Internal Medicine Rheumatology
DX: M06.4 Inflammatory polyarthropathy (principal); M79.7 Fibromyalgia; M17.0 Bilateral primary osteoarthritis of knee; I10 Essential (primary) hypertension; E11.9 Type 2 diabetes mellitus without complications; I26.99 Other pulmonary embolism without acute cor pulmonale; Z79.899 Other long term (current) drug therapy
CPT/HCPCS: 36415; 80053; 85025

== ENCOUNTER → 2020-05-16 16:20 | Outpatient (CLI) | payer BC, SELFPAY ==
[2019-06-08 15:28] VITALS: BMI 34.9
--- NOTE | 2020-05-16 16:22 | BI_ITS ---
MAMMOGRAPHY - BILATERAL SCREENING REASON FOR EXAM: Female, 59 years old. Routine annual screening examination. PERTINENT HISTORY: Non-contributory. TECHNIQUE: Digital bilateral breast abi (3D mammographic acquisition) in the CC and MLO projections. 2-D mediolateral oblique (MLO) and craniocaudad (CC) views of both breasts were obtained. CAD: Full Field Digital Mammography with Computer Added Detection was performed. COMPARISON: Comparison is made with prior study dated 09/03/2018 and 09/25/2016. FINDINGS: Breast Composition: There are scattered areas of fibroglandular density. There are no dominant masses or suspicious calcifications. No other significant abnormalities are identified. There has been no significant change since the prior study. BI/SCREEN MAMM (CAD) W/ABI BILAT IMPRESSION: Stable bilateral screening mammogram. Yearly follow-up mammogram recommended. (A) ASSESSMENT CATEGORY: BIRADS Category 1: Negative. A letter regarding these results will be sent to the patient by the facility within 30 days. Approximately 10% of breast cancers are not detected by mammography. A normal mammogram should not delay biopsy of a clinically suspicious abnormality. [id number] Electronically Signed: Onesimo Lyn, at 8:39 EST , Service support ,
== END ==
PROVIDERS: PCP Family Medicine; Referring Provider Family Medicine; Visit Provider Family Medicine
DX: Z12.31 Encounter for screening mammogram for malignant neoplasm of breast (principal)
CPT/HCPCS: 77063; 77067

== ENCOUNTER → 2024-01-21 | Outpatient (CLI) | payer OTHER, SELFPAY ==
--- NOTE | 2024-01-21 11:23 | RAD_ITS ---
STUDY: X-RAY - CERVICAL SPINE REASON FOR EXAM: Female, 63 years old. neck pain TECHNIQUE: 3 view(s) of the cervical spine were obtained. COMPARISON: None FINDINGS: Normal anterior atlantoaxial articulation. Normal odontoid process. Normal cervical lordosis. Normal vertebral bodies and endplates. Focal disc space narrowing and osteophyte formation at C5/C6 consistent with degenerative disc disease. Normal visualized intervertebral neuroforamina. The soft tissue structures are unremarkable. RAD/Cerv Spine 2 or 3 Views IMPRESSION: Focal degenerative disc disease at C5/C6. MRI may be useful. Electronically Signed: Renny Pollard MD at 12:39 EDT ,
== END | disposition home or self-care (01) ==
PROVIDERS: PCP Internal Medicine; Referring Provider Psychiatry & Neurology Neurology; Visit Provider Psychiatry & Neurology Neurology
DX: M54.2 Cervicalgia (principal)
CPT/HCPCS: 72040